=== PATIENT | female | born 1965 ===

== ENCOUNTER 2022-05-30 07:07 | Day surgery (SDC) | payer OTHER | END 2022-05-30 14:00 | disposition home or self-care (01) | LOC: AMB-ENDOS 07:07 | PROVIDERS: ATTEND Colon & Rectal Surgery | DX: D12.0 Benign neoplasm of cecum (principal); D12.2 Benign neoplasm of ascending colon; Z20.822 Contact with and (suspected) exposure to COVID-19; I10 Essential (primary) hypertension; J45.909 Unspecified asthma, uncomplicated ==